=== PATIENT | male | born 1980 | race Caucasian/White ===

== ENCOUNTER 2019-01-20 06:21 | Emergency (ER) | payer OTHER ==
[2019-01-20 07:06] VITALS: RESP 18; TEMP 98.3
[2019-01-20] MEDS ORDERED: DIPH,PERTUS(ACELL)TETVAC-LF 0.5 ML VIAL IM ONE (07:08)
[2019-01-20] MEDS ORDERED: KETOROLAC 30 MG/ML 1 ML VIAL IVP STA (07:12)
[2019-01-20] MEDS ORDERED: KETOROLAC 30 MG/ML 1 ML VIAL IM STA (07:23)
[2019-01-20] MEDS ORDERED: LIDOCAINE 1% INJ 10MG/ML (20 ML MDV) SQ ONE (07:28)
--- NOTE | 2019-01-20 08:18 | ED ---
General Adult HPI - General Chief complaint: Wound/Laceration Stated complaint: [facility], R Arm Laceration Time Seen by Provider: 01/20/19 07:05 Source: patient, RN notes reviewed, old records reviewed Mode of arrival: ambulatory Limitations: no limitations - History of Present Illness Initial comments: 38-year-old male presents for evaluation of right arm laceration. Patient got his right arm trapped between a piece of equipment at work. He has large V- shaped laceration to the dorsal surface of the elbow. No pain in the hand or wrist. No other injuries. Patient's tetanus is not up-to-date. - Related Data Home Medications Medication Instructions Recorded Confirmed Lansoprazole [Prevacid] 30 - 60 mg PO DAILY PRN 01/20/19 01/20/19 Previous Rx's Medication Instructions Recorded Cephalexin [Keflex] 500 mg PO Q12HR #10 cap 01/20/19 Ibuprofen [Motrin] 600 mg PO Q8HR PRN #24 tab 01/20/19 Allergies Allergy/AdvReac Type Severity Reaction Status Date / Time bee venom protein (honey bee) Allergy Swelling Verified 01/20/19 08:12 Review of Systems ROS Statement: Those systems with pertinent positive or pertinent negative responses have been documented in the HPI. ROS Other: All systems not noted in ROS Statement are negative. Past Medical History Past Medical History: No Reported History History of Any Multi-Drug Resistant Organisms: None Reported Past Surgical History: No Surgical Hx Reported Past Psychological History: No Psychological Hx Reported Smoking Status: Current every day smoker Past Alcohol Use History: None Reported Past Drug Use History: None Reported General Exam Limitations: no limitations General appearance: alert, in no apparent distress Head exam: Present: atraumatic, normocephalic Eye exam: Present: normal appearance, PERRL ENT exam: Present: normal exam Neck exam: Present: normal inspection. Absent: tenderness Respiratory exam: Present: normal lung sounds bilaterally. Absent: respiratory distress Cardiovascular Exam: Present: regular rate, normal rhythm GI/Abdominal exam: Present: soft, distended Extremities exam: Present: other (5 cm x 5 cm, 10 cm total length V-shaped lace ration on the dorsal surface of the elbow, no active hemorrhage, no visualized bone, no visualized tendon) Neurological exam: Present: alert, oriented X3 Psychiatric exam: Present: normal affect, normal mood Course Vital Signs 01/20/19 06:38 Temperature 98.3 F Pulse Rate 107 H Respiratory 18 Rate Blood Pressure 110/66 O2 Sat by Pulse 98 Oximetry Procedures - Laceration Laceration #1 Consent Obtained: verbal consent Indication: laceration Site: upper extremity Size (cm): 10 Description: flap, avulsion, irregular Depth: simple, single layer Anesthetic Used: lidocaine 1% Anesthesia Technique: local infiltration Amount (mls): 10 Pre-repair: wound explored, irrigated extensively, deep structures intact Size of Sutures: 5-0 Number of Sutures: 13 Technique: simple, interrupted Patient Tolerated Procedure: well Medical Decision Making - Medical Decision Making 3-year-old male presenting with V-shaped laceration on the dorsal surface of the right forearm. This is repaired with 5-0 nylon suture in the emergency department, total #13. It is copiously irrigated with tap water. Patient's tetanus is updated. Will be prescribed prophylactic antibiotics given the size of injury and concern for contamination. Disposition Clinical Impression: Laceration Disposition: HOME SELF-CARE Condition: Good Instructions (If sedation given, give patient instructions): Laceration (ED) Additional Instructions: Return for suture removal in 14 days Prescriptions: Cephalexin [Keflex] 500 mg PO Q12HR #10 cap Ibuprofen [Motrin] 600 mg PO Q8HR PRN #24 tab PRN Reason: Pain Is patient prescribed a controlled substance at d/c from ED?: No Referrals: None,Stated [Primary Care Provider] - 1-2 days Haresh Kang MD [STAFF PHYSICIAN] - 1-2 days Time of Disposition: 08:18
[2019-01-20 08:28] VITALS: BP 121/75; PULSE 101
== END 2019-01-20 08:29 | disposition home or self-care (01) ==
LOC: EC 06:21
DX: S51.011A Laceration without foreign body of right elbow, initial encounter (principal); F17.200 Nicotine dependence, unspecified, uncomplicated; Z23 Encounter for immunization; Z91.030 Bee allergy status; Z53.8 Procedure and treatment not carried out for other reasons; W31.9XXA Contact with unspecified machinery, initial encounter; Y92.69 Other specified industrial and construction area as the place of occurrence of the external cause; Y99.0 Civilian activity done for income or pay
CPT/HCPCS: 90715; 99283; 12004; 96372; 90471; J2001; J1885

== ENCOUNTER → 2022-06-12 | Outpatient (CLI) | payer OTHER ==
--- NOTE | 2022-06-12 15:02 | US ---
EXAMINATION TYPE: US venous doppler duplex LE RT DATE OF EXAM: 06/12/2022 2:43 PM COMPARISON: NONE CLINICAL HISTORY: S86.811A STRAIN OF MUSC/TEND AT LOWER LEG LEVEL. Pain, edema right leg for 2 weeks SIDE PERFORMED: right TECHNIQUE: The lower extremity deep venous system is examined utilizing real time linear array sonog sari with graded compression, doppler sonography and color-flow sonography. VESSELS IMAGED: Common Femoral Vein Deep Femoral Vein Greater Saphenous Vein * Femoral Vein Popliteal Vein Small Saphenous Vein * Proximal Calf Veins (* superficial vessels) Right Leg: no evidence of DVT. complex fluid collection right lower leg/upper calf within area of pa in = 13.5cm IMPRESSION: No DVT appreciated at this time.
== END | disposition home or self-care (01) ==
LOC: RADUSWWP 14:17
PROVIDERS: ATTEND Orthopaedic Surgery Sports Medicine
DX: S86.811A Strain of other muscle(s) and tendon(s) at lower leg level, right leg, initial encounter (principal)